=== PATIENT | female | born 1955 | race Caucasian/White ===

== ENCOUNTER → 2016-09-18 | Outpatient (REF) | payer OTHER ==
[2016-09-18 13:51] LABS: PERCENT SATURATION 24.3 % (13.2-37.4)
== END ==
LOC: M LAB REF 12:32
PROVIDERS: ATTEND Internal Medicine Medical Oncology
DX: D50.9 Iron deficiency anemia, unspecified (principal)

== ENCOUNTER → 2016-11-16 | Outpatient (REF) | payer OTHER ==
[2016-11-16 14:12] LABS: PERCENT SATURATION 30.8 % (13.2-37.4)
== END ==
LOC: M LAB REF 12:57
PROVIDERS: ATTEND Internal Medicine Medical Oncology
DX: D50.9 Iron deficiency anemia, unspecified (principal)

== ENCOUNTER → 2017-05-10 | Outpatient (CLI) | payer OTHER ==
--- NOTE | 2017-05-15 12:42 | SLEEPCENT ---
DATE OF STUDY: 05/10/2017 ORDERING PROVIDER: Mer Morley NP Nocturnal polysomnography was performed for evaluation of sleep physiology in this patient with a history of snoring and excessive somnolence complicated by hypertension and prior gastric bypass procedure. 7 hours and 6 minutes of data were reviewed. There were 364 minutes of sleep identified. Sleep latency was normal at 8 minutes. Rapid eye movement (REM) latency was short at 54 minutes. Sleep architecture was fairly good with some fragmentation. There were four REM periods appreciated. Overall sleep efficiency was 87.5%. The patient's electrocardiogram (EKG) showed a sinus rhythm with an average heart rate of 54 beats per minute. Electroencephalogram (EEG) showed normal waveforms for awake and sleep. There were 30 respiratory events identified of 10 seconds in duration or greater for an apnea-hypopnea index of 5.1. The events were obstructive, not exclusive to sleep stage nor body posture. Arousals from respiratory events occurred 2.3 times per hour. Oxygen desaturations were seen into the 80s. There was some limb activity noted, but arousal index was only 3, and remaining measures of sleep physiology were normal with the exception of significant snoring throughout the entirety of the test. IMPRESSION: Mild obstructive sleep apnea syndrome (G47.33). Apnea-hypopnea index 5.1. RECOMMENDATION: Given the patient's history of excessive somnolence and the oxygen desaturations identified during testing, referral back to the sleep disorder center for pressure therapy is recommended. In the interim, alcohol and sedative avoidance should be practiced and caution exercised during the operation of motor vehicles.
== END ==
LOC: M SLEEP 19:43
PROVIDERS: ATTEND Nurse Practitioner Adult Health
DX: G47.33 Obstructive sleep apnea (adult) (pediatric) (principal)

== ENCOUNTER → 2017-08-24 | Outpatient (REF) | payer OTHER ==
[2017-08-24 13:25] LABS: VITAMIN B12 LEVEL 538 PG/ML
[2017-08-24 13:26] LABS: FOLATE 13.5 NG/ML
[2017-08-24 13:29] LABS: FERRITIN 176 NG/ML (8-252); PERCENT SATURATION 28.3 % (13.2-45.0); TOTAL IRON BINDING CAPACITY 290 UG/DL (250-450)
== END ==
LOC: M LAB REF 12:45
DX: D50.9 Iron deficiency anemia, unspecified (principal)
CPT/HCPCS: 82746

== ENCOUNTER → 2017-11-09 | Outpatient (CLI) | payer OTHER | LOC: M RAD 08:04 | DX: Z12.31 Encounter for screening mammogram for malignant neoplasm of breast (principal) | CPT/HCPCS: 77067 ==

== ENCOUNTER → 2018-02-18 | Outpatient (REF) | payer OTHER ==
[2018-02-18 14:24] LABS: FERRITIN 121 NG/ML (8-252); IRON (FE) 67 UG/DL (50-170); TOTAL IRON BINDING CAPACITY 291 UG/DL (250-450)
== END ==
LOC: M LAB REF 13:08
DX: D50.9 Iron deficiency anemia, unspecified (principal)
CPT/HCPCS: 83550

== ENCOUNTER → 2019-04-22 | Outpatient (REF) | payer OTHER ==
[~2019-04-22] MED LIST: ALLE180T33 PO; LISI10TA4 PO; VITA-113 SL
[2019-04-22 14:18] LABS: FOLATE 7.1 NG/ML
== END ==
LOC: M LAB REF 12:12
PROVIDERS: ATTEND Internal Medicine
DX: Z98.84 Bariatric surgery status (principal); D50.9 Iron deficiency anemia, unspecified

== ENCOUNTER → 2019-05-19 | Outpatient (CLI) | payer OTHER ==
[~2019-05-19] MED LIST changes: -VITA-113 SL
[2019-05-19 16:55] LABS: BLOOD UREA NITROGEN 18 MG/DL (7-18); CREATININE FOR GFR 0.62 MG/DL (0.55-1.30); GLOMERULAR FILTRATION RATE > 60.0 (>45)
== END ==
LOC: M LAB 15:59
PROVIDERS: ATTEND Urology
DX: Z13.89 Encounter for screening for other disorder (principal)

== ENCOUNTER → 2020-05-17 | Outpatient (REF) | payer OTHER ==
[~2020-05-17] MED LIST changes: +VITA-113 SL
== END ==
LOC: M LAB REF 12:37
PROVIDERS: ATTEND Internal Medicine
DX: D50.9 Iron deficiency anemia, unspecified (principal); Z98.84 Bariatric surgery status

== ENCOUNTER → 2020-09-07 | Outpatient (CLI) | payer MEDICARE ==
--- NOTE | 2020-09-07 17:44 | REPMRS ---
Patient History The patient states she had a clinical breast exam in April 2020. Patient is postmenopausal and had first child at age 39. Family history of unknown cancer at age 74 in father, unknown cancer at age 50 or over in paternal grandmother, pancreatic cancer at age 58 in paternal cousin. Pre-pectoral silicone gel implants in both breasts, May 2014. Took hormonal contraceptives for 18 years. Took unspecified hormones for 16 years. 3D TOMOSYNTHESIS WAS PERFORMED. [facility] lifetime risk for breast cancer is 9.2%. Volpara breast density b. Digital Woman Screen Mammo: September 07, 2020 - Exam #: [id number] Bilateral CC and MLO view(s) were taken. Technologist: Woo Orrologist Prior study comparison: November 09, 2017, bilateral digital mammo screening bilat, performed at [facility]. July 21, 2015, bilateral digital mammo screening bilat, performed at [facility]. FINDINGS: There are scattered fibroglandular densities. There has been no change in the appearance of the mammogram from the prior studies. There is a mild amount of residual fibroglandular tissue which is fairly symmetric. There is no interval development of dominant mass, architectural distortion, or clustered microcalcification suggestive of malignancy. Assessment: BI-RADS/ACR category 1 mammogram. Negative Mammogram. Recommendation Routine screening mammogram in 1 year (for women over age 40). This mammogram was interpreted with the aid of an FDA-approved computer-aided dectection system. Electronically Signed By: Giles Dominguez MD 09/07/20 [id number]
== END ==
LOC: M WHC 15:45
PROVIDERS: ATTEND Internal Medicine
DX: Z12.31 Encounter for screening mammogram for malignant neoplasm of breast (principal)

== ENCOUNTER → 2021-05-23 | Outpatient (REF) | payer MEDICARE, OTHER ==
[~2021-05-23] MED LIST changes: +LISI10TA22 PO; -LISI10TA4 PO
[2021-05-23 18:09] LABS: FOLATE 11.1 NG/ML
== END ==
LOC: M LAB REF 16:25
PROVIDERS: ATTEND Internal Medicine
DX: Z98.84 Bariatric surgery status (principal); D50.9 Iron deficiency anemia, unspecified

== ENCOUNTER 2021-07-29 07:20 | Outpatient (CLI) | payer MEDICARE ==
[~2021-07-29] VITALS: Ht 170.2 cm; Wt 86.2 kg
[~2021-07-29 07:20] MED LIST changes: +ALBUTEROL 90 MCG/ACT 8GM HFA INHALER INH PRN; +ALBUTEROL SULFATE 2.5 MG/0.5 ML INH NEB SOLN INH PRN; +EPINEPHrine INJ 1 MG/ML 1ML AMP IM PRN; +NS 1,000 ML IV SCH; +diphenhydrAMINE 50MG/ML VIAL (J1200) IV PRN; +methylPREDNISolone 125MG 2ML VIAL IV PRN
[2021-07-29] MEDS ORDERED: ACETAMINOPHEN TAB 650MG DOSE (2X325MG) PO ONE (08:00)
[2021-07-29] MEDS ORDERED: [UNRECOGNIZED DRUG - OTHER] IV ONE (08:00)
[2021-07-29] MEDS ORDERED: diphenhydrAMINE 50MG CAP PO ONE (08:00)
[2021-07-29 08:28] VITALS: BP 141/68
[2021-07-29 08:58] VITALS: BP 141/68
[2021-07-29 09:28] VITALS: BP 130/66
[2021-07-29 10:28] VITALS: BP 142/63
== END 2021-07-29 10:28 | disposition home or self-care (01) ==
LOC: M OPCLI4PR 07:20
PROVIDERS: ATTEND Internal Medicine
DX: U07.1 COVID-19 (principal)

== ENCOUNTER → 2023-05-29 | Outpatient (CLI) | payer MEDICARE ==
[~2023-05-29] MED LIST changes: -ALBUTEROL 90 MCG/ACT 8GM HFA INHALER INH PRN; -ALBUTEROL SULFATE 2.5 MG/0.5 ML INH NEB SOLN INH PRN; -EPINEPHrine INJ 1 MG/ML 1ML AMP IM PRN; -NS 1,000 ML IV SCH; +OSTE1TAB2 PO; +VITMTA PO; -diphenhydrAMINE 50MG/ML VIAL (J1200) IV PRN; -methylPREDNISolone 125MG 2ML VIAL IV PRN
== END ==
LOC: M WHC 06:41
PROVIDERS: ATTEND Internal Medicine
DX: Z12.31 Encounter for screening mammogram for malignant neoplasm of breast (principal)

== ENCOUNTER → 2023-08-29 | Outpatient (REF) | payer MEDICARE ==
[2023-08-30 13:13] LABS: PERCENT SATURATION 23.5 % (13.2-45.0)
[2023-08-30 13:16] LABS: FERRITIN 229.4 NG/ML (7.3-270.7)
== END ==
LOC: M LAB REF 11:35
PROVIDERS: ATTEND Internal Medicine
DX: D51.9 Vitamin B12 deficiency anemia, unspecified (principal); D50.9 Iron deficiency anemia, unspecified

== ENCOUNTER → 2023-09-18 | Outpatient (REF) | payer MEDICARE | LOC: M SFHCWAGY 13:30 | PROVIDERS: ATTEND Nurse Practitioner Family | DX: Z12.4 Encounter for screening for malignant neoplasm of cervix (principal); N95.8 Other specified menopausal and perimenopausal disorders | CPT/HCPCS: 87624; G0123 ==

== ENCOUNTER → 2023-12-07 | Outpatient (CLI) | payer MEDICARE | LOC: M WHC 08:48 | PROVIDERS: ATTEND Internal Medicine Endocrinology, Diabetes & Metabolism | DX: M85.831 Other specified disorders of bone density and structure, right forearm (principal) ==

== ENCOUNTER → 2024-07-22 | Outpatient (CLI) | payer MEDICARE ==
[2024-07-22 14:39] LABS: BASO % 0.7 % (0.0-1.0); EOS # 0.1 10^3/uL (0.0-0.5); EOS % 2.3 % (0.0-3.0); HEMATOCRIT 33.8 % (36.0-47.0); LYMPH # 2.4 10^3/uL (1.5-5.0); LYMPH % 38.9 % (24.0-44.0); MEAN CORPUSCULAR HEMOGLOBIN 30.6 pg (27.0-33.0); MEAN CORPUSCULAR HGB CONC 32.5 g/dl (32.0-36.5); MEAN CORPUSCULAR VOLUME 93.9 fl (80.0-96.0); MONO # 0.5 10^3/uL (0.0-0.8); MONO % 8.8 % (2.0-8.0); NEUTROPHILS % 48.8 % (36.0-66.0); PLATELET COUNT, AUTOMATED 267 10^3/uL (150-450)
[2024-07-22 14:56] LABS: ERYTHROCYTE SEDIMENTATION RATE 8 mm/hr (0-30)
== END ==
LOC: M PLALAB 11:58
PROVIDERS: ATTEND Internal Medicine Infectious Disease
DX: A69.20 Lyme disease, unspecified (principal)

== ENCOUNTER → 2024-09-23 | Outpatient (CLI) | payer MEDICARE | LOC: M WHC 08:26 | PROVIDERS: ATTEND Nurse Practitioner Family | DX: Z12.31 Encounter for screening mammogram for malignant neoplasm of breast (principal) ==

== ENCOUNTER 2025-07-18 17:18 | Emergency (ER) | payer MEDICARE ==
[~2025-07-18] VITALS: Ht 170.2 cm; Wt 85.2 kg
[~2025-07-18 17:18] MED LIST changes: +ERGO500029 PO
[2025-07-18] MEDS: ACETAMINOPHEN 325 MG TAB PO ONE (23:14)
[2025-07-18 23:22] LABS: BASO # 0.0 10^3/uL (0.0-0.2); BASO % 0.4 % (0.0-1.0); EOS # 0.1 10^3/uL (0.0-0.5); EOS % 0.9 % (0.0-3.0); LYMPH # 1.7 10^3/uL (1.5-5.0); LYMPH % 25.5 % (24.0-44.0); MONO # 0.6 10^3/uL (0.0-0.8); MONO % 8.8 % (2.0-8.0); NEUTROPHILS # 4.4 10^3/uL (1.5-8.5); NEUTROPHILS % 64.3 % (36.0-66.0); PLATELET COUNT, AUTOMATED 211 10^3/uL (150-450)
[2025-07-18 23:43] LABS: INR 0.93
[2025-07-18 23:51] LABS: CALCIUM LEVEL 8.4 MG/DL (8.3-10.6); CARBON DIOXIDE LEVEL 29 MMOL/L (20-31); CHLORIDE LEVEL 106 MMOL/L (98-107); CREATININE FOR GFR 0.55 MG/DL (0.55-1.30); GLOMERULAR FILTRATION RATE > 90.0 (>39); MAGNESIUM LEVEL 1.8 MG/DL (1.8-2.4); POTASSIUM SERUM 3.7 MMOL/L (3.5-5.1); SODIUM LEVEL 145 MMOL/L (136-145)
[2025-07-19] MEDS ORDERED: TRAM50TA2 PO (01:26)
[2025-07-19] MEDS: traMADol 50 MG TAB (HOME DOSE PACK) PO ONE (01:54)
[2025-07-19] MEDS: traMADol 50 MG TAB PO ONE (01:54)
[2025-07-19 01:55] VITALS: BP 179/79; TEMP 98.2; O2SAT 98
== END 2025-07-19 02:05 | disposition home or self-care (01) ==
LOC: M ED 17:18
DX: S82.002A Unspecified fracture of left patella, initial encounter for closed fracture (principal); I10 Essential (primary) hypertension; E55.9 Vitamin D deficiency, unspecified; Z98.84 Bariatric surgery status; M85.80 Other specified disorders of bone density and structure, unspecified site; M25.062 Hemarthrosis, left knee; Z79.899 Other long term (current) drug therapy; W01.198A Fall on same level from slipping, tripping and stumbling with subsequent striking against other object, initial encounter; Y93.89 Activity, other specified; Y92.89 Other specified places as the place of occurrence of the external cause; Y99.8 Other external cause status